=== PATIENT | female | born 1995 ===

== ENCOUNTER 2022-04-09 11:38 | Emergency (ER) | payer SELFPAY ==
[~2022-04-09] VITALS: Ht 167.6 cm; Wt 95.3 kg
[2022-04-09] MEDS ORDERED: AMOXICILLIN500 M2 PO (14:50)
== END 2022-04-09 15:06 | disposition home or self-care (01) ==
LOC: ED 11:38
DX: J03.00 Acute streptococcal tonsillitis, unspecified (principal); Z20.822 Contact with and (suspected) exposure to COVID-19